=== PATIENT | male | born 1960 | race Caucasian/White ===

== ENCOUNTER 2018-04-11 09:51 | Day surgery (SDC) | payer OTHER ==
[~2018-04-11] VITALS: Ht 170.2 cm; Wt 59.0 kg
[~2018-04-11 09:51] MED LIST: ALBU90OI INH; ANORO ELLIPTA1 EACH INH; Aspirin EC81 MG PO; CARV6.25 PO; Coreg6.25 MG PO; LISI20 PO; Lamisil At24 GM TOP; Mobic15 MG PO; Zestril40 MG PO
== END 2018-04-11 13:09 | disposition home or self-care (01) ==
LOC: ORSCSDS 09:51
PROVIDERS: Surgery
PROC: 0YU50JZ Supplement Right Inguinal Region with Synthetic Substitute, Open Approach (ICD-10-PCS; principal; 2018-04-11 11:00)
DX: K40.90 Unilateral inguinal hernia, without obstruction or gangrene, not specified as recurrent (principal); I10 Essential (primary) hypertension; J44.9 Chronic obstructive pulmonary disease, unspecified; F17.210 Nicotine dependence, cigarettes, uncomplicated; Z79.899 Other long term (current) drug therapy
CPT/HCPCS: C1781; J0690; J2250; J3010; J7120

== ENCOUNTER 2018-05-27 12:56 | Day surgery (SDC) | payer OTHER ==
[~2018-05-27] VITALS: Ht 170.2 cm; Wt 56.2 kg
--- NOTE | 2018-05-27 14:36 | NUR ---
05/27/18 1436 Martha Brandt PATIENT IS DAILY SMOKER, STATES HE USED HIS INHALER EARLIER AND FEELS HIS BREATHING IS HIS NORMAL STATE AT THIS TIME. HE DID HAVE SLIGHT BILATERAL WHEEZES THAT IMPROVED WITH COUGHING BUT STILL PRESENT. DR CARSON INFORMED AND WILL PROCEED WITH NO ADDITIONAL ORDERS
--- NOTE | 2018-05-27 15:35 | NUR ---
05/27/18 1535 Alvino Robbins NURSE ASSISTED PATIENT WALK OUT TO HIS RIDE HOME
== END 2018-05-27 15:25 | disposition home or self-care (01) ==
LOC: ORSCSDS 12:56
PROVIDERS: Surgery
PROC: 0DJD8ZZ Inspection of Lower Intestinal Tract, Via Natural or Artificial Opening Endoscopic (ICD-10-PCS; principal; 2018-05-27 14:45)
DX: Z12.11 Encounter for screening for malignant neoplasm of colon (principal); Z86.010 Personal history of colon polyps; I10 Essential (primary) hypertension; J44.9 Chronic obstructive pulmonary disease, unspecified; Z79.899 Other long term (current) drug therapy
CPT/HCPCS: J7120